=== PATIENT | female | born 1975 | race Hispanic/Latino ===

== ENCOUNTER 2019-06-13 14:00 | Emergency (ER) | payer SELFPAY ==
[2019-06-13 14:51] LABS: Bilirubin Negative (Negative); Blood, Urine Negative (Negative); Clarity Clear (Clear); Glucose, Urine (Dipstick) Normal (Negative); Leukocyte Negative Leu/uL (Negative); Nitrite Negative (Negative); Protein, Urine (Dipstick) Negative (Neg-Trace); Urobilinogen Normal mg/dL (Less than 2)
[2019-06-13 14:56] LABS: Pregnancy Test - Urine (BHCG) Negative (Negative); Pregu Control Background? CLEAR/WHITE (CLR/WHITE); Pregu Control Bar Appear? YES (CONTROL BAR); Specific Gravity 1.002 (1.002-1.036)
[2019-06-13 15:02] LABS: #Basophils 0.1 thou/uL (0.0-0.2); #Eosinphils 0.1 thou/uL (0.0-0.7); #Lymphocytes 2.9 thou/uL (1.20-3.40); #Monocytes 0.4 thou/uL (0.11-0.59); #Neutrophils 4.8 thou/uL (1.40-6.50); %Basophils 1.1 % (0.0-1.0); %Lymphocytes 35.5 % (21.0-51.0); %Monocytes 4.6 % (0.0-10.0); %Neutrophils 57.9 % (42.0-75.0); Hemoglobin 13.6 g/dL (12.0-16.0); Mean Corpuscular HGB CONC 33.7 g/dL (32.0-36.0); Mean Corpuscular Hemoglobin 30.2 pg (27.0-31.0); Mean Corpuscular Volume 89.5 fL (78.0-98.0); Mean Platelet Volume 7.3 fL (7.4-10.4); Platelet Count 314 thou/uL (130-400); RBC Distribution Width 12.1 % (11.5-14.5); Red Blood Cell (RBC) Count 4.49 mill/uL (4.20-5.40); White Blood Cell (WBC) Count 8.2 thou/uL (4.8-10.8)
[2019-06-13 15:26] LABS: ALT (SGPT) 19 U/L (8-55); AST (SGOT) 17 U/L (5-34); Albumin 4.2 g/dL (3.5-5.0); Alkaline Phosphatase 77 U/L (40-110); Anion Gap 11 mmol/L (10-20); BUN (Urea Nitrogen) 12 mg/dL (7.0-18.7); Bilirubin, Total 0.2 mg/dL (0.2-1.2); Calc. Creatinine Clearance 0 mL/min (70-130); Calcium 9.2 mg/dL (7.8-10.44); Carbon Dioxide 25 mmol/L (22-29); Chloride 105 mmol/L (98-107); Estimated GFR-MDRD 77; Glucose 128 mg/dL (70-105); Potassium 3.7 mmol/L (3.5-5.1); Protein, Total 7.2 g/dL (6.0-8.3); Sodium 137 mmol/L (136-145)
--- NOTE | 2019-06-13 16:41 | ULT ---
Pelvic sonogram transabdominal and transvaginal imaging HISTORY: Vaginal bleeding. Pain. FINDINGS: Urinary bladder is unremarkable. Retroverted Uterus has a heterogeneous echotexture and monica sures up to 9.0 cm. Endometrium measures up to 1.4 cm. No gestational sac is evident. No free fluid within the pelvis. Nabothian cyst on the uterine cervix measures up to 1.6 cm. Neither ovary is visualized with transabdominal or transvaginal imaging. No adnexal masses are visibl e. IMPRESSION: Endometrium is slightly thickened. No evidence of intrauterine gestation or other signifi cant abnormality. Retroverted uterus. Nonvisualization of the ovaries.
== END 2019-06-13 16:05 | disposition home or self-care (01) ==
LOC: ERS 14:00
DX: N93.9 Abnormal uterine and vaginal bleeding, unspecified (principal); E11.9 Type 2 diabetes mellitus without complications; E78.5 Hyperlipidemia, unspecified; E78.00 Pure hypercholesterolemia, unspecified; Z79.84 Long term (current) use of oral hypoglycemic drugs
CPT/HCPCS: 36415; 76856; 80053; 81003; 81025; 84702; 85025; 86900; 86901

== ENCOUNTER 2019-06-15 10:10 | Emergency (ER) | payer SELFPAY ==
--- NOTE | 2019-06-15 11:36 | ULT ---
PELVIC ULTRASOUND: HISTORY: Miscarriage. Follow up vaginal bleeding. TECHNIQUE: Real-time imaging of the pelvis was obtained both transabdominally as well as endovaginally. This leighann ws a uterus measuring 8.2 cm in length. The endometrium is 5 mm. The right ovary is well visualized and normal in appearance. The left ovary is not seen. No free flui d is demonstrated. On Doppler evaluation with spectral analysis, normal flow is shown to the right ovary. IMPRESSION: 1. Non-visualization of the left ovary. 2. Normal appearing uterus and right ovary. 3. No intrauterine identified. POS: [facility]
== END 2019-06-15 13:35 | disposition home or self-care (01) ==
LOC: ERS 10:10
DX: O03.9 Complete or unspecified spontaneous abortion without complication (principal); E11.9 Type 2 diabetes mellitus without complications; E78.5 Hyperlipidemia, unspecified; E78.00 Pure hypercholesterolemia, unspecified; R10.819 Abdominal tenderness, unspecified site
CPT/HCPCS: 36415; 76856; 84702